=== PATIENT | female | born 1940 | race Caucasian/White ===

== ENCOUNTER 2016-03-26 18:27 | Emergency (ER) | payer MEDICARE ==
[~2016-03-26] VITALS: Ht 162.6 cm; Wt 62.6 kg
[~2016-03-26 18:27] MED LIST: ASPI1TAB7 PO; MOTR200T47 PO
[2016-03-26 18:30] VITALS: BP 187/91; PULSE 90; RESP 1; RESP 12; TEMP 98.1; O2SAT 96
--- NOTE | 2016-03-26 20:41 | PD ---
HPI Chief Complaint: Foreign Body Time Seen by Provider: 20:35 Travel History International Travel<30 days: No Contact w/Intl Traveler<30days: No Traveled to known affect area: No History of Present Illness HPI 76-year-old white female presents to emergency department with complaints of left eye pain. She states that she was stung in the left eyelid and eye by a passing by bugs. [place] in a swarm of insects flew by. She states that she felt as if she was stung in the face and has had pain in the left eye. She states that she has decreased vision out of her left eye and normally only sees 20/200. She has foreign body sensation in the lateral eye. She denies any diplopia. No discharge. Slight tearing. No itching. No photophobia. No vision loss. PFSH Past Medical History Narrative Medical Chronic eye problems with vision loss Diminished Hearing: No Immunizations Current: Yes Tetanus Vaccination: < 5 Years ?: Not Tubal Ligation: Yes Past Surgical History Narrative Surgical Tubal ligation, multiple eye surgeries Social History Alcohol Use: Yes (occ) Tobacco Use: No Substance Use: No Allergies-Medications (Allergen,Severity, Reaction): Coded Allergies: Sulfa (Verified Allergy, Severe, hives, 03/26/16) Reported Meds & Prescriptions Reported Meds & Active Scripts Active No Active Prescriptions or Reported Medications Review of Systems Except as stated in HPI: all other systems reviewed are Neg Physical Exam Narrative GENERAL: This is a well-nourished, well-developed patient, in no apparent distress. SKIN: No rashes, ecchymoses or lesions. Warm and dry. HEAD: Atraumatic. Normocephalic. EYES: PERRL, EOMI, no discharge or injection in the right eye. The left eye is slightly injected. There is mild swelling of the eyelid.. No scleral icterus. Ophthaine is instilled in both eyes. Lids are flipped and no foreign body seen. Fluorescein stain is negative for corneal abrasion or ulceration. Ocular pressure in the left eye is 16 and ocular pressure in the right eye is 12. Positive red reflex bilaterally. Visual acuity with glasses: Right eye 20/ 50, left eye 20/200, both eyes 20/50 EARS: Clear NOSE: Nasal turbinates appear normal. THROAT: Mucosa pink and moist. Airway patent. NECK: Trachea midline. supple, moves head freely. LUNGS: Clear to auscultation. CV: Regular in rhythm. ABDOMEN: Soft nontender. EXT: No clubbing cyanosis or edema. Data Data Last Documented VS Vital Signs Date Time Temp Pulse Resp B/P Pulse Ox O2 Delivery O2 Flow Rate FiO2 03/26/16 18:30 98.1 90 12 187/91 96 Room Air 4 Orders Erythromycin 0.5% Opth Oint (Ilotycin 0. (03/26/16 21:00) [facility] Medical Decision Making Medical Screen Exam Complete: Yes Emergency Medical Condition: Yes Medical Record Reviewed: Yes Differential Diagnosis MDM: High Differential diagnoses: Acute conjunctivitis (bacterial, viral, allergic, traumatic), glaucoma, iritis, traumatic globe injury, foreign body, corneal abrasion, corneal ulcer, diabetic retinopathy, photokeratitis, herpes keratitis , CMV retinitis Narrative Course I see no ulceration, abrasion, foreign body or obvious injury to the eye. I've advised the patient to follow-up with ophthalmology tomorrow. Patient is given a ribbon of erythromycin ointment to the left eye. She is to continue this every 6 hours This is left eye pain Diagnosis Primary Impression: Acute left eye pain Referrals: Eliseo Ho MD 1 day Patient Instructions: General Instructions Additional Instructions: Rest. Wash eyelashes with baby shampoo 3 times daily. One ribbon of erythromycin ointment in the left eye 4 times daily. Follow-up with the eye doctor tomorrow for recheck. Follow-up with your medical doctor this week for recheck. Return to the ER if any problems. Med/Other Pt SpecificInfo: Prescription(s) given Scripts No Active Prescriptions or Reported Meds Disposition: 01 DISCHARGE HOME Condition: Stable Dmitry Reddy Mar 26, 2016 20:41
[2016-03-26] MEDS ORDERED: ERYTHROMYCIN 0.5% OPTH OINT 3.5 GM TUBO LEFT EYE ONE (21:00)
== END 2016-03-26 22:44 | disposition home or self-care (01) ==
LOC: NEPB 18:27
DX: H57.12 Ocular pain, left eye (principal); H54.62 Unqualified visual loss, left eye, normal vision right eye
CPT/HCPCS: 99283